=== PATIENT | female | born 1940 | race Caucasian/White ===

== ENCOUNTER 2021-09-29 02:17 | Inpatient (IN) | payer MEDICARE ==
[2021-09-29 03:17] LABS: ALT (SGPT) 15 U/L (8-55); AST (SGOT) 18 U/L (5-34); Albumin 4.4 g/dL (3.4-4.8); Alkaline Phosphatase 68 U/L (40-110); Anion Gap 14 mmol/L (10-20); BUN (Urea Nitrogen) 15 mg/dL (9.8-20.1); Bilirubin, Total 0.4 mg/dL (0.2-1.2); Calc. Creatinine Clearance 0 mL/min (70-130); Calcium 9.8 mg/dL (7.8-10.44); Carbon Dioxide 25 mmol/L (23-31); Chloride 104 mmol/L (98-107); Estimated GFR 57; Globulin 2.6 g/dL (2.4-3.5); Glucose 110 mg/dL (83-110); Lipase 34 U/L (8-78); Potassium 4.3 mmol/L (3.5-5.1); Sodium 139 mmol/L (136-145)
[2021-09-29 03:24] LABS: #Basophils 0.1 10x3/uL (0.0-0.2); #Eosinphils 0.3 10x3/uL (0.0-0.5); #Monocytes 1.2 10x3/uL (0.0-1.1); #Neutrophils 5.6 10x3/uL (1.5-8.4); %Eosinophils 2.9 % (0.0-6.0); %Lymphocytes 23.7 % (18.0-47.0); %Monocytes 12.7 % (0.0-10.0); %Neutrophils 59.6 % (40.0-75.0); Mean Corpuscular HGB CONC 33.7 g/dL (32.0-36.0); Mean Corpuscular Hemoglobin 32.2 pg (27.0-33.0); Mean Corpuscular Volume 95.5 fl (81.6-98.3); Mean Platelet Volume 10.9 fl (7.4-10.4); Platelet Count 170 10x3/uL (150-450); RBC Distribution Width 12.7 % (11.5-14.5); Red Blood Cell (RBC) Count 4.04 10x6/uL (3.90-5.03); White Blood Cell (WBC) Count 9.3 10x3/uL (3.5-10.5)
[2021-09-29 03:36] LABS: CKMB 3.3 ng/mL (0-6.6)
[2021-09-29] MEDS ORDERED: Zolpidem Tartrate 5 MG TAB PO PRN (03:55)
[2021-09-29] MEDS ORDERED: Senokot S 8.6-50 MG TAB PO PRN (03:55)
[2021-09-29] MEDS ORDERED: Calcium Carbonate 500 MG ChewTAB PO PRN (03:55)
[2021-09-29] MEDS ORDERED: Acetaminophen 325 MG TAB PO PRN (03:55)
[2021-09-29] MEDS ORDERED: Guaifenesin DM 100-10/5 ML UDCUP PO PRN (03:55)
[2021-09-29] MEDS ORDERED: Ondansetron PF 4 MG/2 ML Vial IVP PRN (03:55)
[2021-09-29] MEDS ORDERED: Nitroglycerin 0.4 MG TAB (25 Tab Bottle) SL PRN (03:59)
[2021-09-29 05:17] LABS: Bilirubin Neg (Negative); Blood, Urine 10 (Negative); Clarity Clear (Clear); Glucose, Urine (Dipstick) Normal (Negative); Ketone, Urine Negative (Negative); Leukocyte Negative (Negative); Nitrite Negative (Negative); Protein, Urine (Dipstick) 15 mg/dl (Neg-Trace); Urobilinogen Normal mg/dL (Less than 2)
[2021-09-29 05:28] LABS: Bacteria/HPF None Seen HPF (None Seen); RBC/HPF 0-3 HPF (0-3); Renal Epithelial 0-3 HPF (None Seen); Squamous Epithelial 0-3 HPF (0-3); WBC/HPF 0-3 HPF (0-3)
[2021-09-29 05:32] LABS: SARS-CoV-2 NAA Rapid Test Not Detected (NotDetected)
[2021-09-29] MEDS: Levothyroxine Sodium 125 MCG TAB PO SCH (06:02)
[2021-09-29 08:15] LABS: Thyroid Stimulating Hormone 0.1875 uIU/mL (0.35-4.94)
[2021-09-29 08:19] LABS: CKMB 3.2 ng/mL (0-6.6)
[2021-09-29] MEDS ORDERED: Metoprolol Tartrate 25 MG TAB ONE ×3 (08:57→14:17)
[2021-09-29] MEDS ORDERED: Metoprolol Tartrate 25 MG TAB PO SCH ×2 (09:00→14:00)
[2021-09-29] MEDS ORDERED: Atorvastatin Calcium 10 MG TAB ONE (09:00)
[2021-09-29] MEDS: Atorvastatin Calcium 10 MG TAB PO SCH (09:10)
[2021-09-29] MEDS: Lisinopril 5 MG TAB PO SCH ×2 (09:11→21:40)
[2021-09-29 09:19] LABS: Free T4 (Free Thyroxine) 1.19 ng/dL (0.70-1.48)
[2021-09-29 10:14] LABS: Troponin I 0.141 ng/mL (< 0.028)
[2021-09-29 12:15] LABS: CKMB 3.1 ng/mL (0-6.6)
[2021-09-29] MEDS ORDERED: hydrALAZINE 20 MG/ML VIAL SLOW IVP PRN (13:49)
[2021-09-29] MEDS ORDERED: Enoxaparin Sodium 40 MG/0.4 ML SYRINGE SC SCH (21:00)
[2021-09-29] MEDS: Metoprolol Tartrate 25 MG TAB PO SCH (21:40)
[2021-09-30 05:13] LABS: Prothrombin Time 10.8 sec (9.5-12.1)
[2021-09-30 05:27] LABS: Anion Gap 13 mmol/L (10-20); BUN (Urea Nitrogen) 11 mg/dL (9.8-20.1); Calc. Creatinine Clearance 70 mL/min (70-130); Calcium 8.8 mg/dL (7.8-10.44); Carbon Dioxide 25 mmol/L (23-31); Cardiac Risk 3.1 (Less than 4.5); Chloride 107 mmol/L (98-107); Cholesterol 144 mg/dl (< 200 Desired); Estimated GFR 84; Glucose 82 mg/dL (83-110); HDL Cholesterol 46 mg/dL (>60 Neg Risk); LDL Cholesterol, Calculated 63 mg/dL; Sodium 141 mmol/L (136-145); Triglycerides 176 mg/dL (Less than 150)
[2021-09-30 05:28] LABS: #Basophils 0.1 10x3/uL (0.0-0.2); #Eosinphils 0.3 10x3/uL (0.0-0.5); #Monocytes 0.9 10x3/uL (0.0-1.1); #Neutrophils 4.1 10x3/uL (1.5-8.4); %Basophils 0.9 % (0.0-2.0); %Eosinophils 4.3 % (0.0-6.0); %Lymphocytes 28.6 % (18.0-47.0); %Monocytes 11.9 % (0.0-10.0); Mean Corpuscular HGB CONC 34.1 g/dL (32.0-36.0); Mean Corpuscular Hemoglobin 32.4 pg (27.0-33.0); Mean Corpuscular Volume 95.1 fl (81.6-98.3); Mean Platelet Volume 11.2 fl (7.4-10.4); Platelet Count 153 10x3/uL (150-450); RBC Distribution Width 12.9 % (11.5-14.5); White Blood Cell (WBC) Count 7.5 10x3/uL (3.5-10.5)
[2021-09-30] MEDS: Levothyroxine Sodium 125 MCG TAB PO SCH (07:19)
[2021-09-30] MEDS: Metoprolol Tartrate 25 MG TAB PO SCH (08:34)
[2021-09-30] MEDS: Lisinopril 5 MG TAB PO SCH (08:34)
[2021-09-30] MEDS: Atorvastatin Calcium 10 MG TAB PO SCH (08:34)
[2021-09-30 12:53] LABS: Hemoglobin A1c 5.1 % (4.0-6.0)
[2021-09-30 16:29] VITALS: BP 137/63; TEMP 98
== END 2021-09-30 16:49 | disposition home or self-care (01) | DRG 313 ==
LOC: CSHERS 02:17 → INTOOBSV 04:38 → CSHERHOLD 04:38 → CSHTELE 04:50 → OBSVTOIN 09:41 → CSHTELE 16:24
PROVIDERS: ADMIT Student in an Organized Health Care Education/Training Program; ATTEND Internal Medicine
DX: R07.89 Other chest pain (principal); E78.5 Hyperlipidemia, unspecified; I34.0 Nonrheumatic mitral (valve) insufficiency; E03.9 Hypothyroidism, unspecified; I16.0 Hypertensive urgency; Z20.822 Contact with and (suspected) exposure to COVID-19; I48.0 Paroxysmal atrial fibrillation; Z88.5 Allergy status to narcotic agent; Z79.82 Long term (current) use of aspirin; Z79.899 Other long term (current) drug therapy; Z90.710 Acquired absence of both cervix and uterus; Z98.890 Other specified postprocedural states
CPT/HCPCS: 36415; 71045; 80048; 80053; 80061; 81003; 81015; 82553; 83036; 83690; 83735; 83880; 84439; 84443; 84484; 85025; 85610; 93005; 93306; G0378; J1650; U0002